=== PATIENT | male | born 1970 | race African-American/Black ===

== ENCOUNTER 2016-09-28 21:11 | Emergency (ER) | payer OTHER, BC ==
[2016-09-28] MEDS ORDERED: LIDOCAINE 1% INJ-PF (10 MG/ML) 30 ML SDV ONE (21:22)
[2016-09-28] MEDS ORDERED: CEFAZOLIN INJ 1 GM VIAL ONE (21:22)
[2016-09-28] MEDS ORDERED: KETAMINE HCL INJ 500 MG/10 ML VIAL ONE (21:38)
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
[2016-09-28] MEDS ORDERED: ONDANSETRON HCL INJ/PF 4 MG/2 ML SDV ONE (22:15)
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
[2016-09-28 22:30] LABS: ABSOLUTE EOSINOPHILS # (AUTO) 0.2 10^3/uL (0.0-0.6); ABSOLUTE LYMPHOCYTES (AUTO) 2.3 10^3/uL (0.5-4.7); ABSOLUTE MONOCYTES (AUTO) 0.7 10^3/uL (0.1-1.4); ABSOLUTE NEUT (AUTO) 8.1 10^3/uL (1.7-8.2); BASOPHILS % (AUTO) 0.3 % (0-2); EOSINOPHILS % (AUTO) 1.4 % (0-6); HEMOGLOBIN 14.9 g/dL (13.5-17.0); HGB HCT DIFFERENCE 0.7; LYMPHOCYTES % (AUTO) 20.6 % (13-45); MEAN CORPUSCULAR HGB CONC 33.9 g/dL (32.0-36.0); MEAN CORPUSCULAR VOLUME 97 fl (80-97); MONOCYTES % (AUTO) 6.6 % (3-13); RED BLOOD COUNT 4.52 10^6/uL (4.35-5.55); SEGMENTED NEUTROPHILS % (AUTO) 71.1 % (42-78); WHITE BLOOD COUNT 11.3 10^3/uL (4.0-10.5)
[2016-09-28 22:43] LABS: ANION GAP 13 (5-19); BLOOD UREA NITROGEN 11 mg/dL (7-20); CALCIUM 9.1 mg/dL (8.4-10.2); CARBON DIOXIDE 24 mmol/L (22-30); CHLORIDE 103 mmol/L (98-107); CREATININE RESULT 0.95 mg/dL (0.52-1.25); GLUCOSE 138 mg/dL (75-110); POTASSIUM 3.1 mmol/L (3.6-5.0); SODIUM 140.1 mmol/L (137-145)
[2016-09-28] MEDS: FENTANYL CITRATE INJ/PF 100 MCG/2 ML AMPUL IV PRN (23:41)
[2016-09-29] MEDS: FENTANYL CITRATE INJ/PF 100 MCG/2 ML AMPUL IV PRN (00:20)
[2016-09-29 00:26] VITALS: BP 134/101
== END 2016-09-29 01:10 | disposition short-term general hospital (02) ==
LOC: ER 21:11
PROC: 0QSMXZZ Reposition Left Tarsal, External Approach (ICD-10-PCS; principal; 2016-09-28)
PROC: 0HQLXZZ Repair Left Lower Leg Skin, External Approach (ICD-10-PCS; 2016-09-28)
DX: S82.892A Other fracture of left lower leg, initial encounter for closed fracture (principal); S81.812A Laceration without foreign body, left lower leg, initial encounter; M25.572 Pain in left ankle and joints of left foot; V87.7XXA Person injured in collision between other specified motor vehicles (traffic), initial encounter
CPT/HCPCS: 99291; 99152; 96375; 96365; 36415; 85025; 80048; 71010; 73590; 28435; 12001; J0690; J3010 ×2

== ENCOUNTER 2016-10-03 18:51 | Emergency (ER) | payer OTHER, BC ==
[2016-10-03 19:11] VITALS: BP 117/88
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
== END 2016-10-03 20:30 | disposition home or self-care (01) ==
LOC: ER 18:51
DX: Z48.01 Encounter for change or removal of surgical wound dressing (principal)
CPT/HCPCS: 99282

== ENCOUNTER 2016-10-15 22:55 | Emergency (ER) | payer OTHER, BC ==
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
[2016-10-16 03:12] VITALS: BP 122/88
== END 2016-10-16 03:14 | disposition home or self-care (01) ==
LOC: ER 22:55
DX: S90.552A Superficial foreign body, left ankle, initial encounter (principal)
CPT/HCPCS: 99283